=== PATIENT | female | born 1990 ===

== ENCOUNTER 2017-09-09 17:40 | Emergency (ER) | payer OTHER ==
[2017-09-09 18:04] VITALS: BMI 27.9
[2017-09-09 20:37] LABS: SQUAMOUS EPITHIAL < 1 /hpf (0-5); URINE BILIRUBIN NEGATIVE (NEGATIVE); URINE BLOOD NEGATIVE (NEGATIVE); URINE CLARITY CLEAR (Clear); URINE COLOR STRAW (YELLOW); URINE GLUCOSE (UA) NEG (Normal); URINE LEUKOCYTE ESTERASE NEG Leu/uL (Negative); URINE PROTEIN NEGATIVE (NEGATIVE); URINE UROBILINOGEN 0.2-1.0 mg/dL (0.2-1.0)
--- NOTE | 2017-09-09 21:12 | US ---
EXAM: US After First Trimester, Transabdominal CLINICAL HISTORY: 27 years old, female; Pain; complicated by abdominal or pelvic pain; Lower; Second trimester; Gestational age or lmp: 04/02/2017; ; Additional info: Vaginal spotting TECHNIQUE: Real-time transabdominal obstetrical ultrasound of the maternal pelvis and a second or third trimester with image documentation. COMPARISON: No relevant prior studies available. FINDINGS: Fetus: Single live intrauterine gestation. Heart rate: heart rate of 140 beats per minute. Presentation: Breech. Placenta: Posterior. No placenta previa or abruption. Amniotic fluid: Normal. Anatomy: No gross anomaly is appreciated. BIOMETRICS Gestational age: Estimated gestational age of 22 weeks 6 days by measurements. EFW: Estimated weight of 525 g (34%). BPD: 4.7 cm, correlating with 23 weeks 6 days (68%). HC: 20.4 cm, correlating with 22 weeks 4 days(22%). AC: 18.0 cm, correlating with 22 weeks 6 days (42%). FL: 3.9 cm, correlating with 22 weeks 3 days (25%). MATERNAL: Uterus: Unremarkable. No myometrial mass. Cervix: No cervical dilatation or effacement. Adnexa: Ovaries not visualized. No adnexal masses. Free fluid: No significant free fluid. IMPRESSION: 1. Single live intrauterine gestation.
[2017-09-10 04:49] VITALS: BP 108/52; PULSE 102; RESP 18; TEMP 98.5
== END 2017-09-09 21:15 | disposition home or self-care (01) ==
LOC: H.EROB2 17:40
DX: O26.852 Spotting complicating pregnancy, second trimester (principal); O26.92 Pregnancy related conditions, unspecified, second trimester; R10.2 Pelvic and perineal pain; Z3A.23 23 weeks gestation of pregnancy

== ENCOUNTER 2017-12-28 05:13 | Inpatient (IN) | payer OTHER ==
--- NOTE | 2017-12-28 05:26 | OBHP ---
Datetime: 09/09/2017 19:05 IP Adm Impression: , intrauterine IP Admit Plan: Observation/Evaluation Admit Comment, IP Provider: 27 yo at 23.2 weeks GA, LIZETH 01/04/[birth year] presents to [facility] w/ c/o intermi ttent vaginal spotting x 1 week associated with dark urine today and abdominal cramping starting toda y. Denies dysuria, nausea, vomiting, fever, chills or flank pain. Pt reports +FM. Denies LOF or CTX. PNC: Dr. Bebeto Jackson pastobhx: G1 Pastgynx: denies hx STI or abnormal pap pmhx: denies pshx: denies socialhx: denies smoking cigarettes, drinking EtOH or using drugs familhx: denies hx CAD or DMII meds: PNV allergies: NKDA Assessment: 27 yo G1 at 23.2 weeks GA presents for vaginal spotting and abdominal cramping. Plan: Intermittent heart tracing UA US for cervical length measurement Case d/w on-call OB Hospitalist Dr. Bradford Storey, PGY-1 Addendum: I saw and examined patient to presentation. No evidence of labor at this time. Normal-appe aring cervix. Normal cervical length on ultrasound. Both maternal well-being and well-being adarsh ssuring at this time. Patient discharged to home. Bradford Abdomen - PN: Normal Lungs - PN: Normal Heart - PN: Normal Neurologic - PN: Normal HEENT - PN: Normal General - PN: Normal FHR - Baseline A Provider: 160s with doppler EGA AdmitDate IP: 23.2 Vital Signs Provider: Reviewed IP Chief Complaint: Vaginal bleeding
[2017-12-28 05:37] VITALS: BMI 32.5
[2017-12-28] MEDS ORDERED: Lactated Ringer's 1,000 ML IV ONE (06:10)
[2017-12-28] MEDS ORDERED: Oxytocin 30 units/LR 500ML 30 U/500 ML BAG IV ONE ×3 (06:11→14:10)
--- NOTE | 2017-12-28 06:50 | OBADHP ---
Datetime: 12/28/2017 06:01 IP Adm Impression Other: painful CTX/early labor IP Admit Plan Other: pain management discussed Admit Comment, IP Provider: 27 yo at 39 wk, LIZETH 01/04/18 based on LMP 03/30/17, U/s done 05/19/18 . Patient complains of contractions started since 3 am they have been occuring every 6-7 mins. Gustavo vazquez states she has had vaginal bleeing throughout an was admitted 09/09/17 for it, denies any other complications. Denies LOF. Reports good movement. Dr. Quezada is her doctor. OBHx: Vaginal bleeding throughout , BRANNON 17.1, BPP 8/8 PNL: All labs unremarkable, ABO:O+, recived TDAP GynxhX: Denies any STI's or abnormal paps smears, last sexually active last week PMHx: None Meds:Prenatals Allergies: NKDA Fhx: HTN- mom Social Hx: Denies smoking, tobacco, drugs A/P 39 wk IUP here with contraction - painful Early labor 1. Monitor tracing Admit to L _ D, have patient ambulate, nitrous oxide prn pain, recheck cervix IVF, CBC Sharifa Stevens PGY-1 Reviewed and discussed with Attending Ob Hospitalist on-call With PGY1 I saw and examined this patient. Agree with note. Prental chart rev'd. Pain managment, labor, delivrey and postparum discussed Extremities - PN: Normal Abdomen - PN: Normal Lungs - PN: Normal Heart - PN: Normal HEENT - PN: Normal General - PN: Normal Presentation-Admit: Vertex FHR - Baseline A Provider: 140 Pool Provider: Negative IP Hx Assessment: The History has been Reviewed and is Current IP Chief Complaint: Uterine contractions NICHD Variability Prov Fetus A: Moderate 6-25bpm NICHD Accel Fetus A IP Provider: 15X15 FHR Category Provider Fetus A: Category I NICHD Decel Fetus A IP Provider: None Dilatation, Provider: 3 Effacement, Provider: 90 Station, Provider: -3 EGA AdmitDate IP: 39.0 IP Adm Impression: Term, intrauterine ; Intact Membranes IP Admit Plan: Admit to unit; Initiate labor protocol Datetime: 09/09/2017 19:05 Neurologic - PN: Normal Vital Signs Provider: Reviewed
[2017-12-28 07:52] LABS: BASO % 0.2 % (0.0-2.0); EOS # 0.1 K/uL (0.0-0.7); EOS % 0.3 % (0.0-4.0); HEMOGLOBIN 12.3 g/dL (12.0-16.0); LYMPH # 2.2 K/uL (1.0-4.3); LYMPH % 11.2 % (20.0-40.0); MEAN CELL VOLUME 92.9 fl (81.0-99.0); MEAN CORPUSCULAR HEMOGLOBIN 32.5 pg (27.0-31.0); MEAN CORPUSCULAR HGB CONC 34.9 g/dL (33.0-37.0); MEAN PLATELET VOLUME 7.8 fl (7.2-11.7); MONO # 0.9 K/uL (0.0-0.8); MONO % 4.5 % (0.0-10.0); NEUT # 16.9 K/uL (1.8-7.0); NEUT % 83.8 % (50.0-75.0); RBC 3.79 Mil/uL (3.80-5.20); RED CELL DISTRIBUTION WIDTH 12.9 % (11.5-14.5); WHITE BLOOD COUNT 20.2 K/uL (4.8-10.8)
[2017-12-28] MEDS ORDERED: Fentanyl/Bupivacaine HCl 250 ML EPI ONE (08:32)
--- NOTE | 2017-12-28 08:32 | OBPN ---
Datetime: 12/28/2017 08:16 IP Progress Impression: Normal progression of labor; Reassuring heart rate IP Informed Consent Obtain: Vaginal Delivery IP Procedures: Sterile Vag Exam; Epidural Placement IP Progress Plan: Continue present management; Augmentation Membranes, Provider: Intact Contraction Comments Provider: Q 3-4 FHR - Baseline A Provider: 130 Gestation - Est Wks by US: 39.0 Presentation-Admit: Vertex IP Progress Note Comment: Pt reports having strong pelvic cramps and requests for epidural for pain. FHR- 130s reactive [place]-Q 3-4 SVE: /-2, membranes bulging Assessment: IUP at 39wks in Active labor NST- Reactive Plan: For epidural anesthesia Continue labor monitoring Vital Signs Provider: Reviewed NICHD Accel Fetus A IP Provider: 15X15 FHR Category Provider Fetus A: Category I NICHD Variability Prov Fetus A: Moderate 6-25bpm Dilatation, Provider: 4 Effacement, Provider: 90 Station, Provider: -2 NICHD Decel Fetus A IP Provider: None Datetime: 12/28/2017 06:01 Pool Provider: Negative
[2017-12-28] MEDS: Lactated Ringer's 1,000 ML IV SCH ×2 (09:00→14:00)
--- NOTE | 2017-12-28 10:36 | OBPN ---
Datetime: 12/28/2017 10:21 IP Progress Impression: Normal progression of labor; Reassuring heart rate IP Procedures: Artificial ROM; Sterile Vag Exam IP Progress Plan: Continue present management Membranes, Provider: Ruptured Amniotic Fluid Color, Provider: Clear Contraction Comments Provider: Q 2-3 FHR - Baseline A Provider: 130 Gestation - Est Wks by US: 39.0 Presentation-Admit: Vertex IP Progress Note Comment: Pt is comfortable s/p Epidural. SVE: /-1 AROM done- Clear fluid Assessment: IUP at 39wks Plan: Continue monitoring labor. NICHD Accel Fetus A IP Provider: 15X15 FHR Category Provider Fetus A: Category I NICHD Variability Prov Fetus A: Moderate 6-25bpm Dilatation, Provider: 7 Effacement, Provider: 90 Station, Provider: -1 NICHD Decel Fetus A IP Provider: None
--- NOTE | 2017-12-28 16:22 | OBDS ---
MATERNAL INFORMATION Provider Comments: Uncomplicated spontaneous vaginal delivery od a viable with BW of 3510g an d scores of over a second degreee perineal laceration which was repaired with good cosmesis. Potion was JOVITA. E BL 200mls. Pat tolerated the procedure well. LABOR SUMMARY EDC: 01/04/2018 00:00 No. Babies in Womb: 1 LABOR INFORMATION Onset of Labor: 12/28/2017 03:00 Group B Beta Strep: Negative Steroids Given: None Reason Steroids Not Administered: Not Applicable Other Reason Not Administered: Not required MEMBRANES Membranes Rupture Method: Artificial Rupture of Membranes: 12/28/2017 10:30 Amniotic Fluid Color: Clear Amniotic Fluid Amount: Small Amniotic Fluid Odor: Normal VAGINAL DELIVERY Episiotomy: None Laceration Extension: Second Degree Laceration Type: Perineal Laceration Repair Note: Repaired with 3-0 vicryl under epidural anesthesia with good cosmesis Sponge Count Correct: Yes Sharps Count Correct: Yes
[2017-12-28] MEDS ORDERED: Benzocaine/Menthol SPRAY TOP PRN (16:26)
--- NOTE | 2017-12-28 20:57 | OBDS ---
Delivery Doctor: Jahaira Aguilar MD Marketing Clerk: Jennifer Royal RN Resident: Nico Castro MD (resident) Delivery Anesthesia: Epidural Medications in Delivery: Pitocin Estimated Blood Loss (ml): 200 Placenta Cultured: No Maternal Complications: None RN Comments: Atraumatic of a viable babygirl with Lusty Cry Skin to skin initiated immediately. 9/9 APGARs assigned. Infant provided with O2 and suctioning due to palor color and audible secreti ons @ . 16:03 Dr Martino present at 16:05 to Assess and continue care. SPO2 placed on infant at 16:07 noted to be between 88 and 90. Oxygen administered and suctioning done by Dr. Martino. Afte r further assessment infant was taken to nursery for additional care at 16:15 Patient tolerated proc edure and is recoverying well Provider Comments: Uncomplicated spontaneous vaginal delivery od a viable infant with BW of 3510g an d scores of 9 and 9, over a second degreee perineal laceration which was repaired with good cos mesis. Potion was JOVITA. EBL 200mls. Patient tolerated the procedure well. Attempted: No Labor Anesthesia: Epidural Reason for Induction: Not Applicable Complete Dilatation: 12/28/2017 15:15 Oxytocin: Augmentation Antibiotics # of Doses: none Length of Rupture (hrs): 5.43 Stage 1 hrs: 12 Stage 1 min: 15 Stage 2 hrs: 0 Stage 2 min: 41 Stage 3 hrs: 0 Stage 3 min: 9 Total Time in Labor hrs: 13 Total Time in Labor min: 5 Laceration Repair: Yes Initial Vag Sponge Count: 10 Final Vag Sponge Count: 10 Initial Vag Sharps Count: 1 Final Vag Sharps Count: 1 Infant Delivery Date/Time: 12/28/2017 15:56 Method of Delivery: Vaginal Born in Route : No : N/A Forceps: N/A Vacuum Extraction: N/A Shoulder Dystocia : No Delivery Date/Time: 12/28/2017 15:56 Presentation: Cephalic Cephalic Presentation: Vertex Vertex Position: Left Occipital Anterior Breech Presentation: N/A Placenta Delivery Time : 12/28/2017 16:05 Placenta Method of Delivery: Spontaneous Placenta Status: Delivered Heart Rate 1 min: >100 bpm Resp Effort 1 min: Good Cry Reflex Irritability 1 min: Cough or Sneeze or Pulls Away Muscle Tone 1 min: Active Motion Color 1 min: Body [place], Extremities Blue Resuscitation Effort 1 min: N/A SCORE 1 MIN: 9 Heart Rate 5 min: >100 bpm Resp Effort 5 min: Good Cry Reflex Irritability 5 min: Cough or Sneeze or Pulls Away Muscle Tone 5 min: Active Motion Color 5 min: Body [place], Extremities Blue Resuscitation Effort 5 min: N/A SCORE 5 MIN: 9 Gestational Age at Delivery: 39.0 Gestational Status: Term Outcome : Liveborn Infant Condition : Stable Infant Sex: Female Infant Birthweight (gms): 3510 Infant Weight (lb): 7 Weight (oz): 12 No. 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
[2017-12-29 07:15] LABS: BASO % 0.2 % (0.0-2.0); EOS # 0.1 K/uL (0.0-0.7); EOS % 0.3 % (0.0-4.0); HEMOGLOBIN 10.5 g/dL (12.0-16.0); LYMPH # 2.4 K/uL (1.0-4.3); MEAN CELL VOLUME 93.6 fl (81.0-99.0); MEAN CORPUSCULAR HEMOGLOBIN 31.5 pg (27.0-31.0); MEAN CORPUSCULAR HGB CONC 33.7 g/dL (33.0-37.0); MEAN PLATELET VOLUME 7.6 fl (7.2-11.7); MONO # 1.2 K/uL (0.0-0.8); MONO % 6.3 % (0.0-10.0); NEUT % 81.2 % (50.0-75.0); RBC 3.34 Mil/uL (3.80-5.20); RED CELL DISTRIBUTION WIDTH 12.9 % (11.5-14.5); WHITE BLOOD COUNT 19.7 K/uL (4.8-10.8)
[2017-12-29] MEDS: Multivitamin With Minerals Tab PO SCH (10:02)
[2017-12-29] MEDS: Oxycodone/Acetaminophen 5/325 mg Tab PO PRN ×2 (10:08→22:07)
--- NOTE | 2017-12-30 07:01 | OBPPN ---
Datetime: 12/29/2017 06:56 PP Pain Prov: Within normal limits PP Nausea Prov: Denies PP Flatus Prov: Yes PP Breasts Prov: Normal PP Heart Prov: Normal PP Lungs Prov: Normal PP Abdomen/Uterus Prov: Normal PP Lochia Prov: Normal PP Vulva/Perineum Prov: Normal PP CVA Tenderness Prov: Normal PP Extremities Prov: Normal PP Comments Phys Exam Prov: Abd: Soft,NT, BS- present UT - Firm PP Impression Prov: Normal progression PP Plan Prov: Continue present management PP Progress Note Prov: S/P , PPD#1 Clinically Stable. Plan: Continue care. Vital Signs Provider PP: Reviewed
[2017-12-30] MEDS: Multivitamin With Minerals Tab PO SCH (08:29)
[2017-12-30 23:39] VITALS: BP 108/66; PULSE 85; RESP 19; TEMP 98.3; O2SAT 99
== END 2017-12-30 19:37 | disposition home or self-care (01) | DRG 775 ==
LOC: H.EROB2 05:13 → H.L&D 06:12 → H.OB/GYN 18:19
PROVIDERS: ADMIT Obstetrics & Gynecology; ATTEND Obstetrics & Gynecology
PROC: 10E0XZZ Delivery of Products of Conception, External Approach (ICD-10-PCS; principal; 2017-12-28)
PROC: 0KQM0ZZ Repair Perineum Muscle, Open Approach (ICD-10-PCS; 2017-12-28)
PROC: 4A1HXCZ Monitoring of Products of Conception, Cardiac Rate, External Approach (ICD-10-PCS; 2017-12-28)
DX: O70.1 Second degree perineal laceration during delivery (principal); Z37.0 Single live birth; Z3A.39 39 weeks gestation of pregnancy